=== PATIENT | female | born 1975 | race Asian ===

== ENCOUNTER 2025-01-23 06:30 | Day surgery (SDC) | payer BC, SELFPAY | END 2025-01-23 14:46 | disposition home or self-care (01) | LOC: GI 06:30 | PROVIDERS: ATTENDING PHYSICIAN Internal Medicine Gastroenterology | DX: Z12.11 Encounter for screening for malignant neoplasm of colon (principal); K64.9 Unspecified hemorrhoids; K63.5 Polyp of colon | CPT/HCPCS: 45380; 88305 ==